=== PATIENT | male | born 1970 | race Caucasian/White ===

== ENCOUNTER 2017-03-22 04:55 | Emergency (ER) | payer MEDICAID, SELFPAY ==
[~2017-03-22] VITALS: Ht 182.9 cm; Wt 75.0 kg
[2017-03-22 05:03] VITALS: BP 110/66
[2017-03-22 05:58] LABS: HEMATOCRIT 40.8 % (39.2-51.8); HEMOGLOBIN 14.2 g/dL (13.7-18.0); WHITE BLOOD COUNT 10.2 x10^3/uL (3.4-10)
[2017-03-22 06:10] LABS: BLOOD UREA NITROGEN 16 mg/dL (7-18)
[2017-03-22 06:24] LABS: ACETAMINOPHEN < 2 mcg/mL (10-30)
[2017-03-22 06:36] LABS: DAU SCREEN DISCLAIMER
== END 2017-03-22 08:09 ==
LOC: ED 06:10
DX: R41.82 Altered mental status, unspecified (principal); F10.129 Alcohol abuse with intoxication, unspecified; Y90.9 Presence of alcohol in blood, level not specified; Z79.899 Other long term (current) drug therapy
CPT/HCPCS: 36415; 80048; 80307; 80329; 82040; 82140; 85025; 93005; 99285; G0479; G0480

== ENCOUNTER 2017-03-22 17:13 | Inpatient (IN) | payer MEDICAID ==
[~2017-03-22] VITALS: Ht 182.9 cm; Wt 73.2 kg
[2017-03-22] MEDS ORDERED: SODIUM CHLORIDE 0.9% 1,000ML IVBOLUS ONE (18:00)
[2017-03-22] MEDS ORDERED: SODIUM CHLORIDE FLUSH 10ML SYR IVF ONE (18:00)
[2017-03-22 18:01] LABS: HEMATOCRIT 41.1 % (39.2-51.8); HEMOGLOBIN 14.1 g/dL (13.7-18.0); WHITE BLOOD COUNT 7.7 x10^3/uL (3.4-10)
[2017-03-22 18:11] LABS: ASPARTATE AMINO TRANSFERASE 32 U/L (15-37); BLOOD UREA NITROGEN 12 mg/dL (7-18)
[2017-03-22 18:16] LABS: ACETAMINOPHEN < 2 mcg/mL (10-30)
[2017-03-22] MEDS ORDERED: THIAMINE 100 MG, MVI ADULT 10 ML in D5%-0.9% NACL 1,000 ML IV SCH (21:00)
[2017-03-22] MEDS ORDERED: ONDANSETRON 2MG/ML, 2ML IVPush PRN (21:00)
[2017-03-22] MEDS ORDERED: ACETAMINOPHEN 325 MG TABLET PO PRN (21:00)
[2017-03-23 00:40] VITALS: BP 99/60
[2017-03-23] MEDS: THIAMINE 100 MG, MVI ADULT 10 ML, FOLIC ACID 1 MG in D5%-0.9% NACL 1,000 ML IV SCH (01:29)
[2017-03-23 02:00] VITALS: BP 100/60
[2017-03-23 06:32] LABS: BLOOD UREA NITROGEN 16 mg/dL (7-18)
[2017-03-23 06:45] LABS: ASPARTATE AMINO TRANSFERASE 27 U/L (15-37)
[2017-03-23 07:48] VITALS: BP 89/56
[2017-03-23] MEDS: SODIUM CHLORIDE 0.9% 1,000 ML IV SCH ×2 (08:04→14:40)
[2017-03-23 13:10] LABS: DAU SCREEN DISCLAIMER
[2017-03-23 13:57] VITALS: BP 96/60
[2017-03-23] MEDS: NICOTINE 21 MG/24 HR PATCH.TD24 TD SCH (17:04)
[2017-03-23 19:29] VITALS: BP 95/59
[2017-03-24] MEDS: THIAMINE 100 MG, MVI ADULT 10 ML, FOLIC ACID 1 MG in D5%-0.9% NACL 1,000 ML IV SCH (00:45)
[2017-03-24 02:18] VITALS: BP 181/70
[2017-03-24 02:30] VITALS: BP 116/79
[2017-03-24] MEDS: SODIUM CHLORIDE 0.9% 1,000 ML IV SCH (06:27)
[2017-03-24 07:55] VITALS: BP 115/74
[2017-03-24 13:25] VITALS: BP 112/67
[2017-03-24 14:20] VITALS: BP 109/73
[2017-03-24] MEDS: GABAPENTIN 300 MG CAPSULE PO SCH ×2 (15:49→21:03)
[2017-03-24] MEDS: NICOTINE 21 MG/24 HR PATCH.TD24 TD SCH (15:49)
[2017-03-24 19:36] VITALS: BP 109/69
[2017-03-24] MEDS ORDERED: LEVETIRACETAM 500 MG TABLET PO SCH (21:00)
[2017-03-24] MEDS ORDERED: GUANFACINE 1 MG TABLET PO SCH (21:00)
== END 2017-03-24 23:23 | DRG 918 ==
LOC: ED 20:03 → SUATTDRO 20:33 → EDIP 20:40 → 4EST 03-23 01:13 → 3E 03-24 14:19
PROVIDERS: ADMIT Hospitalist; ATTEND Family Medicine
DX: T43.222A Poisoning by selective serotonin reuptake inhibitors, intentional self-harm, initial encounter (principal); F33.9 Major depressive disorder, recurrent, unspecified; M62.82 Rhabdomyolysis; F10.129 Alcohol abuse with intoxication, unspecified; G40.909 Epilepsy, unspecified, not intractable, without status epilepticus; I45.81 Long QT syndrome; Z87.820 Personal history of traumatic brain injury; Y92.89 Other specified places as the place of occurrence of the external cause
CPT/HCPCS: 36415; 80053; 80177; 80307; 80329; 81003; 82550; 83735; 84100; 84443; 85025; 93005; 96360; 96361; J3411; J7042; G0479; G0480; J7030

== ENCOUNTER 2017-04-20 23:11 | Emergency (ER) | payer MEDICAID ==
[~2017-04-20] VITALS: Ht 182.9 cm; Wt 74.7 kg
[2017-04-20 23:13] VITALS: BP 130/81
== END 2017-04-20 23:50 | disposition left against medical advice (07) ==
LOC: ED 23:44
DX: F32.9 Major depressive disorder, single episode, unspecified (principal)
CPT/HCPCS: 99284